=== PATIENT | female | born 1985 | race Asian ===

== ENCOUNTER 2021-03-10 01:00 | Inpatient (IN) | payer MEDICAID ==
[~2021-03-10] VITALS: Ht 160 cm; Wt 67.8 kg
[2021-03-10] MEDS ORDERED: HALOPERIDOL 5 MG TABLET PO PRN (01:45)
[2021-03-10 02:18] LABS: COVID AG,FIA SOURCE NASOPHARYNGEAL
[2021-03-10 02:25] LABS: BASOPHILS % (AUTO) 1.2 % (0.0-2.0); EOSINOPHILS % (AUTO) 0.7 % (1.0-6.0); HEMATOCRIT 43.5 % (36-46); HEMOGLOBIN 14.4 g/dL (12.0-16.0); LYMPHOCYTES # (AUTO) 2.5 K/uL (1.0-4.8); LYMPHOCYTES % (AUTO) 17.9 % (22.0-44.0); MEAN CORPUSCULAR VOLUME 88 fL (80-100); MONOCYTES # (AUTO) 0.7 K/uL (0.1-1.0); MONOCYTES % (AUTO) 4.7 % (2.0-9.0); NEUTROPHILS # (AUTO) 10.4 K/uL (1.8-7.7); NEUTROPHILS % (AUTO) 75.5 % (40.0-70.0); PLATELET COUNT (AUTO) 332 K/uL (150-450); RED BLOOD CELL COUNT(AUTO) 4.96 MIL/uL (4.00-5.20); RED CELL DISTRIBUTION WIDTH 13.4 % (11.5-14.5)
[2021-03-10 02:29] LABS: AMPHET/METH SCREEN,URINE NEGATIVE (NEGATIVE); BARBITURATE SCREEN, URINE NEGATIVE (NEGATIVE); BENZODIAZEPINES SCREEN,URINE NEGATIVE (NEGATIVE); CANNABINOID SCREEN,URINE NEGATIVE (NEGATIVE); COCAINE SCREEN,URINE NEGATIVE (NEGATIVE); METHADONE SCREEN, URINE NEGATIVE (NEGATIVE); OPIATE SCREEN,URINE NEGATIVE (NEGATIVE)
[2021-03-10 02:30] LABS: PHENCYCLIDINE SCREEN,URINE NEGATIVE (NEGATIVE)
[2021-03-10 02:32] LABS: ANION GAP 6 mmol/L (8-16); CALCIUM, TOTAL 9.2 mg/dL (8.8-10.5); CARBON DIOXIDE 32 mmol/L (22-29); CHLORIDE 101 mmol/L (98-107); CREATININE 0.76 mg/dL (0.60-1.30); GLOMERULAR FILTR. RATE CALC > 60 mL/min (>60); GLUCOSE,RANDOM 112 mg/dL (70-110); POTASSIUM 3.9 mmol/L (3.5-5.1); SODIUM SERUM 139 mmol/L (136-145); UREA NITROGEN, BLOOD 17 mg/dL (7-18)
[2021-03-10 02:38] LABS: APPEARANCE,URINE CLEAR (CLEAR); BILIRUBIN,URINE NEGATIVE (NEGATIVE); GLUCOSE, URINE (UA) NEGATIVE (NEGATIVE); KETONES,URINE NEGATIVE (NEGATIVE); LEUKOCYTE ESTERASE ,URINE MODERATE (NEGATIVE); NITRATE,URINE NEGATIVE (NEGATIVE); OCCULT BLOOD,URINE NEGATIVE (NEGATIVE); PH,URINE 6.5 (5.0-8.0); PROTEIN,URINE NEGATIVE (NEGATIVE); UROBILINOGEN,URINE 0.2 mg/dL (<=1.0)
[2021-03-10 02:46] LABS: ALANINE AMINOTRANSFERASE 18 U/L (12-78); ALBUMIN 4.2 g/dL (3.4-5.0); ALKALINE PHOSPHATASE 48 U/L (46-116); ASPARTATE AMINOTRANSFERASE 12 U/L (15-37); BILIRUBIN,TOTAL 0.3 mg/dL (0.1-1.0); HCG,QUANTITATIVE < 1 mIU/mL (0-6)
[2021-03-10 02:48] LABS: BACTERIA,URINE Few /HPF (None Seen); RBC,URINE 0-2 /HPF (0-2); SQUAMOUS EPITHELIAL CELL,UR Moderate /LPF (None Seen)
[2021-03-10 06:34] VITALS: BP 143/83
[2021-03-10 08:42] VITALS: BP_SYST 147
[2021-03-10] MEDS ORDERED: NICOTINE 14 MG/24 HOUR PATCH TD PRN (10:30)
[2021-03-10] MEDS ORDERED: ALBUTEROL SULFATE HFA 90 MCG/PUFF 8 GM INHALER IH PRN (10:30)
[2021-03-10] MEDS ORDERED: MAG HYDROX/AL HYDROX/SIMETH ES 30 ML SUSPENSION UDCUP PO PRN (10:30)
[2021-03-10] MEDS ORDERED: ACETAMINOPHEN 325 MG TABLET PO PRN (10:30)
[2021-03-10] MEDS ORDERED: ONDANSETRON HCL 4 MG TABLET PO PRN (10:30)
[2021-03-10] MEDS ORDERED: LOPERAMIDE HCL 2 MG CAPSULE PO PRN (10:30)
[2021-03-10] MEDS ORDERED: GuaiFENesin/D-METHORPHAN [SUGAR-FREE] 200-20MG/10 ML SYRUP UDCUP PO PRN (10:30)
[2021-03-10] MEDS ORDERED: MAGNESIUM HYDROXIDE SUSPENSION 30 ML UDCUP PO PRN (10:30)
[2021-03-10] MEDS ORDERED: PETROLATUM,WHITE 28 GM JELLY TP PRN (10:30)
[2021-03-10] MEDS ORDERED: DOCUSATE SODIUM 100 MG CAPSULE PO PRN (10:30)
[2021-03-10] MEDS ORDERED: CloNIDine HCL 0.1 MG TABLET PO PRN (10:30)
[2021-03-10] MEDS ORDERED: IBUPROFEN 400 MG TABLET PO PRN (10:30)
[2021-03-10] MEDS: LORazepam 2 MG TABLET PO PRN (13:48)
[2021-03-10] MEDS: ZOLPIDEM TARTRATE 10 MG TABLET PO PRN (20:13)
[2021-03-10 20:30] VITALS: BP 136/81
[2021-03-11 00:48] VITALS: BP 133/80
[2021-03-11] MEDS: LORazepam 2 MG TABLET PO PRN (02:05)
[2021-03-11 08:37] VITALS: BP 115/72
[2021-03-11 16:20] VITALS: BP 137/76
[2021-03-11] MEDS: ZOLPIDEM TARTRATE 10 MG TABLET PO PRN (22:01)
[2021-03-12 00:47] VITALS: BP 124/88
[2021-03-12] MEDS: LORazepam 2 MG TABLET PO PRN (00:53)
[2021-03-12 08:04] LABS: CHOL/HDL RATIO 3.1 (3.9-5.7)
[2021-03-12 08:10] VITALS: BP 126/69
[2021-03-12] MEDS: CEPHALEXIN MONOHYDRATE 500 MG CAPSULE PO SCH ×3 (08:19→16:55)
[2021-03-12 16:06] VITALS: BP 123/57
[2021-03-12] MEDS: OLANZapine 5 MG TABLET PO SCH (16:55)
[2021-03-13] MEDS: CEPHALEXIN MONOHYDRATE 500 MG CAPSULE PO SCH ×3 (00:05→16:53)
[2021-03-13 05:57] VITALS: BP 120/72
[2021-03-13] MEDS: OLANZapine 5 MG TABLET PO SCH ×2 (08:43→16:53)
[2021-03-13 08:51] VITALS: BP 125/81
[2021-03-13 16:15] VITALS: BP 133/75
[2021-03-14] MEDS: CEPHALEXIN MONOHYDRATE 500 MG CAPSULE PO SCH ×3 (00:07→16:33)
[2021-03-14 00:23] VITALS: BP 107/68
[2021-03-14] MEDS: ZOLPIDEM TARTRATE 10 MG TABLET PO PRN (01:23)
[2021-03-14 08:57] VITALS: BP 118/75
[2021-03-14] MEDS: OLANZapine 5 MG TABLET PO SCH ×2 (08:57→16:33)
[2021-03-14 16:16] VITALS: BP 130/80
[2021-03-15] MEDS: CEPHALEXIN MONOHYDRATE 500 MG CAPSULE PO SCH ×2 (00:04→08:17)
[2021-03-15 00:22] VITALS: BP 128/70
[2021-03-15 07:18] LABS: COVID AG,FIA SOURCE NASOPHARYNGEAL
[2021-03-15 08:15] VITALS: BP 124/76
[2021-03-15] MEDS: OLANZapine 5 MG TABLET PO SCH (08:17)
[2021-03-15] MEDS ORDERED: OLAN5TAB2 PO (10:18)
[2021-03-15] MEDS ORDERED: CEPH500C3 PO (10:19)
== END 2021-03-15 13:10 | disposition home or self-care (01) | DRG 750 ==
LOC: EMS 01:03 → B2S 02:00
PROVIDERS: ADMIT Psychiatry & Neurology Psychiatry; ATTEND Psychiatry & Neurology Psychiatry
DX: F25.1 Schizoaffective disorder, depressive type (principal); R45.851 Suicidal ideations; F41.0 Panic disorder [episodic paroxysmal anxiety]; G47.00 Insomnia, unspecified; I10 Essential (primary) hypertension; N39.0 Urinary tract infection, site not specified; Z20.822 Contact with and (suspected) exposure to COVID-19; F12.90 Cannabis use, unspecified, uncomplicated; E03.9 Hypothyroidism, unspecified
CPT/HCPCS: 80053; 80061; 81001; 84702; 85025; 87086; 87426; 99285; G0480